=== PATIENT | male | born 1970 | race African-American/Black ===

== ENCOUNTER 2025-05-07 17:32 | Emergency (ER) | payer OTHER ==
[~2025-05-07] VITALS: Ht 170.2 cm; Wt 78.0 kg
[2025-05-07 18:28] LABS: BASOPHILS % 0.9 % (0.0-2.0); DIFFERENTIAL COMMENT 0; EOSINOPHILS % 7.4 % (0.0-5.0); HEMOGLOBIN. 14.4 g/dL (14.0-18.0); MEAN CORPUSCULAR HGB CONC 33.5 g/dL (31.0-37.0); MEAN CORPUSCULAR VOLUME 101.3 fL (80.0-94.0); MEAN PLATELET VOLUME 8.9 fl (7.4-10.4); MONOCYTES % 8.4 % (2.0-8.0); NEUTROPHILS % 35.3 % (40.0-76.0); PLATELET 220 x1000/uL (130-400); RED BLOOD CELL COUNT 4.24 mill/uL (4.7-6.1); RED CELL DISTRIBUTION WIDTH 13.3 % (11.6-14.6); WHITE BLOOD COUNT 5.3 x1000/uL (4.5-11.0)
[2025-05-07] MEDS: IPRATROPIUM BROMIDE (0.02%) 0.5MG/2.5ML NEB HHN STA (18:35)
[2025-05-07 18:36] VITALS: PULSE 86; RESP 18; O2SAT 100
[2025-05-07] MEDS: ALBUTEROL (0.083%) 2.5MG/3ML NEB HHN STA (18:36)
[2025-05-07] MEDS: METHYLPREDNISOLONE SOD SUCC 125MG/2ML (ACT-O-VIAL) IM STA (18:38)
[2025-05-07 18:40] LABS: CHLORIDE 106 mEq/L (98-107); POTASSIUM 3.9 mEq/L (3.5-5.1); SODIUM 140 mEq/L (136-145)
[2025-05-07 18:41] LABS: CALCIUM 9.6 mg/dL (8.7-10.4); CARBON DIOXIDE 28 mEq/L (21-32)
[2025-05-07 18:46] LABS: CREATININE 1.3 mg/dL (0.6-1.3); GLUCOSE 97 mg/dL (70-105); UREA NITROGEN BLOOD 14 mg/dL (9-23)
[2025-05-07 18:47] LABS: TROPONIN I HIGH SENSITIVITY 5 ng/L (3.0-53)
[2025-05-07] MEDS ORDERED: ALBU90AE INH (19:11)
[2025-05-07] MEDS ORDERED: AZIT250T12 MT (19:11)
[2025-05-07] MEDS ORDERED: METH4TAB95 MT (19:11)
[2025-05-07 19:20] VITALS: BP 138/100; PULSE 97; RESP 20; TEMP 36.8; O2SAT 98
== END 2025-05-07 19:21 | disposition home or self-care (01) ==
LOC: ER 17:32
DX: J45.901 Unspecified asthma with (acute) exacerbation (principal); Z79.899 Other long term (current) drug therapy
CPT/HCPCS: 80048; 85025; 84484; 36415; 71045; 93005; 94644; 96372; 99285; J2919; Z7610 ×3; 94070; 94640